=== PATIENT | male | born 1955 | race Caucasian/White ===

== ENCOUNTER 2017-03-13 13:04 | Emergency (ER) | payer OTHER ==
[~2017-03-13] VITALS: Ht 177.8 cm; Wt 61.2 kg
[~2017-03-13 13:04] MED LIST: HYDR-4446 PO; ONDA8TAB PO; VITA-123 PO
[2017-03-13 13:15] VITALS: BP 142/87
[2017-03-13 14:17] LABS: BASOPHILS # (AUTO) 0.1 K/uL (0.00-0.22); BASOPHILS % (AUTO) 1.6 % (0.0-2.0); EOSINOPHILS % (AUTO) 0.5 % (0.0-4.0); HEMATOCRIT 41.3 % (36-52); HEMOGLOBIN 13.8 g/dL (12.0-18.0); LYMPHOCYTES # (AUTO) 0.5 K/uL (2.0-11.5); LYMPHOCYTES % (AUTO) 6.6 % (20.5-51.1); MEAN CORPUSCULAR HEMOGLOBIN 28 pg (27-31); MEAN CORPUSCULAR HGB CONC 33 g/dL (33-37); MEAN CORPUSCULAR VOLUME 85 fL (80-94); MONOCYTES # (AUTO) 0.7 K/uL (0.8-1.0); NEUTROPHILS # (AUTO) 6.9 K/uL (1.8-7.7); NEUTROPHILS % (AUTO) 83.3 % (42.2-75.2); PLATELET COUNT (AUTO) 147 K/uL (140-450); RED BLOOD CELL COUNT(AUTO) 4.88 MIL/uL (4.20-6.10); RED CELL DISTRIBUTION WIDTH 15.7 % (11.6-13.7); WHITE BLOOD COUNT (AUTO) 8.2 K/uL (4.8-10.8)
[2017-03-13 14:35] LABS: ALBUMIN 4.3 g/dL (3.4-5.0); ANION GAP 16.4 (8-16); CARBON DIOXIDE 26.1 mmol/L (21-32); CREATININE 0.7 mg/dL (0.7-1.3); POTASSIUM 3.5 mmol/L (3.5-5.1); TOTAL BILIRUBIN 4.4 mg/dL (0.0-1.0)
--- NOTE | 2017-03-13 14:41 | NUR ---
RECEIVED PT PT PRESENTS TO ER W/C/O ABDOMINAL PAIN X1 WEEK. HX GASTRITIS.
--- NOTE | 2017-03-13 14:46 | NUR ---
PT REPORTS GENREALIZED ABDOMINAL PAIN WITHNAUSEA/VOMITTING (CLR FLUID) AND BLACK STOOLS SINCE LAST NIGHT. DENIES ANY CP OR SOB. SKIN WARM/DRY/PINK. NO OBVIOUS BLEEDING NOTED. REPORTS MILD FEVER LAST NIGHTS, +CHILLS. DENIES DIARRHEA. STATES HE'S HAD THIS BEFORE, SEEN AT HOSPITALBUT SENT HOME WITHOUT ANY "REAL TX". PT DENIES TAKING ANY ANTICOAGULANTS. REPORTS LEFT LOWER LUNG LOBECTOMY. RESP EVEN AND UNLABORED.WAITING FOR ER MD SCHUMACHER.
--- NOTE | 2017-03-13 15:42 | NUR ---
DR HERNANDEZ IN ROOM FOR EXAM
--- NOTE | 2017-03-13 16:00 | NUR ---
Patient discharged with v/s stable. Written and verbal after care instructions given and explained. Patient alert, oriented and verbalized understanding of instructions. Ambulatory with steady gait. All questions addressed prior to discharge. ID band removed. Patient advised to follow up with PMD. Rx of PRILOSEC given. Patient educated on indication of medication including possible reaction and side effects. Opportunity to ask questions provided and answered.
== END 2017-03-13 16:00 | disposition home or self-care (01) ==
LOC: MED 13:04
DX: R10.12 Left upper quadrant pain (principal); K92.1 Melena; F17.200 Nicotine dependence, unspecified, uncomplicated; J45.909 Unspecified asthma, uncomplicated
CPT/HCPCS: 36415; 80053; 83690; 85025; 99284

== ENCOUNTER 2019-07-02 10:59 | Emergency (ER) | payer OTHER ==
[~2019-07-02] VITALS: Ht 175.3 cm; Wt 68.0 kg
[~2019-07-02 10:59] MED LIST changes: +ACET-8386 PO; -HYDR-4446 PO
[2019-07-02 11:05] VITALS: BP_SYST 130; BP_SYST 144; BP_DIAS 62; BP_DIAS 92
--- NOTE | 2019-07-02 11:15 | NUR ---
TO BED # 08, BROUGHT IN BY AMBULANCE FOR GEN WEAKNESS, N/V. PATIENT ETOH , HE DRINK ALL NIGHT.
--- NOTE | 2019-07-02 11:31 | NUR ---
SEEN AND EXAMINED BY RICA , WITH ORDERS AND CARRIED OUT.
--- NOTE | 2019-07-02 11:57 | NUR ---
oil well fishing tool technician at bedside.
--- NOTE | 2019-07-02 12:29 | NUR ---
Patient returned from CT scan. RN re-evaluating patient at bedside.
[2019-07-02 13:01] LABS: BASOPHILS % (AUTO) 0.6 % (0.0-2.0); HEMOGLOBIN 12.3 g/dL (12.0-18.0); LYMPHOCYTES # (AUTO) 0.5 K/uL (2.0-11.5); MEAN CORPUSCULAR HEMOGLOBIN 29 pg (27-31); MEAN CORPUSCULAR HGB CONC 32 g/dL (33-37); MEAN CORPUSCULAR VOLUME 88.2 fL (80-94); MONOCYTES # (AUTO) 0.8 K/uL (0.8-1.0); MONOCYTES % (AUTO) 9.6 % (1.7-9.3); NEUTROPHILS # (AUTO) 7.1 K/uL (1.8-7.7); NEUTROPHILS % (AUTO) 83.8 % (42.2-75.2); PLATELET COUNT (AUTO) 134 K/uL (140-450); RED BLOOD CELL COUNT(AUTO) 4.31 MIL/uL (4.20-6.10); RED CELL DISTRIBUTION WIDTH 16.6 % (11.6-13.7); WHITE BLOOD COUNT (AUTO) 8.5 K/uL (4.8-10.8)
[2019-07-02 13:53] LABS: ALBUMIN 3.8 g/dL (3.4-5.0); ANION GAP 26.4 (8-16); CARBON DIOXIDE 20.5 mmol/L (21-32); CREATININE 0.9 mg/dL (0.7-1.3); POTASSIUM 3.9 mmol/L (3.5-5.1); TOTAL BILIRUBIN 1.5 mg/dL (0.0-1.0)
[2019-07-02] MEDS ORDERED: ONDANSETRON 4 MG/2 ML VIAL IVP ONE (14:00)
[2019-07-02 14:17] LABS: APPEARANCE,URINE CLEAR (CLEAR); BILIRUBIN,URINE NEGATIVE (NEGATIVE); BLOOD, URINE 1+ (NEGATIVE); COLOR,URINE YELLOW (YELLOW); LEUKOCYTE ESTERASE ,URINE NEGATIVE (NEGATIVE); NITRITE, URINE NEGATIVE (NEGATIVE); UGLUCOSE NEGATIVE (NEGATIVE)
[2019-07-02 14:37] LABS: WBC,URINE 0-5 /HPF (0-5)
[2019-07-02] MEDS ORDERED: NACL 0.9% 1,000 ML IV ONE (14:45)
[2019-07-02] MEDS ORDERED: KETOROLAC 30 MG/ML VIAL IM/IVP ONE (16:00)
--- NOTE | 2019-07-02 16:43 | NUR ---
IV removed, catheter intact and site benign. Applied folded 4x4 gauze and tape to stop bleeding.
[2019-07-02 16:44] VITALS: BP 133/65
--- NOTE | 2019-07-02 16:44 | NUR ---
Patient discharged with v/s stable. Written and verbal after care instructions given and explained. Patient verbalized understanding. Ambulatory with steady gait. Patient accompanied by significant other. All questions addressed prior to discharge. Advised to follow up with PMD.
== END 2019-07-02 16:44 | disposition home or self-care (01) ==
LOC: MED 10:59
DX: T14.90XA Injury, unspecified, initial encounter (principal); F10.129 Alcohol abuse with intoxication, unspecified; E86.0 Dehydration; J45.909 Unspecified asthma, uncomplicated; Z79.899 Other long term (current) drug therapy; W20.8XXA Other cause of strike by thrown, projected or falling object, initial encounter; Y93.89 Activity, other specified; Y92.89 Other specified places as the place of occurrence of the external cause; Y99.8 Other external cause status
CPT/HCPCS: 36415; 70450; 71045; 74176; 80053; 81001; 82140; 83690; 85025; 96361; 96374; 96375; 99284; G0482; J1885; J2405; Q0092

== ENCOUNTER 2021-02-02 06:55 | Inpatient (IN) | payer OTHER ==
[~2021-02-02] VITALS: Ht 177.8 cm; Wt 61.7 kg
[2021-02-02] VITALS (7 sets, daily range): BP systolic 128–149; BP diastolic 65–96
[~2021-02-02 06:55] MED LIST changes: -ONDA8TAB PO; +ONDA8TAB87 PO
--- NOTE | 2021-02-02 06:55 | NUR ---
BROUGHT IN BY AMBULANCE WITH C/O GEN WEAKNESS, DIZZINESS, BODY ACHES.
[2021-02-02] MEDS ORDERED: DILTIAZEM 25 MG/5 ML VIAL IVP ONE ×3 (06:59→07:40)
[2021-02-02] MEDS ORDERED: NACL 0.9% 1,000 ML IV ONE (07:00)
--- NOTE | 2021-02-02 07:36 | NUR ---
65 Y/O M MIKE FROM [facility], PT WAS PREVIOUSLY AT [facility], BUT WAS PUT IN ER LOBBY WAITING. PT THEN CALLED 911 TO BE SEEN HERE. ON SCENE PT WAS SHOWN TO HAVE ATRIAL FLUTTER VS SVT AND WAS GIVEN ADENOSINE 6MG, 12MG WITH NO RESPONSE. PT WAS C/O GENERALIZED WEAKNESS, DIZZINESS, AND BODY ACHES. PT IS CURRENTLY A&OX4 UNABLE TO AMBULATE AT THIS TIME WITH STEADY GAIT. PT AT THIS TIME IS PRESENTING WITH A FLUTTER WITH HR OF 144. PATIENT POSITIONED FOR COMFORT; HOB ELEVATED; BEDRAILS UP X2; BED DOWN. ER MD MADE AWARE OF PT STATUS. PMH: L LUNG REMOVAL, HERNIA, ACID REFLUX NKA
[2021-02-02 08:03] LABS: BASOPHILS % (AUTO) 0.2 % (0.0-2.0); EOSINOPHILS % (AUTO) 0.1 % (0.0-4.0); HEMATOCRIT 40.9 % (36-52); HEMOGLOBIN 13.4 g/dL (12.0-18.0); LYMPHOCYTES # (AUTO) 0.6 K/uL (2.0-11.5); LYMPHOCYTES % (AUTO) 13.6 % (20.5-51.1); MEAN CORPUSCULAR HEMOGLOBIN 30 pg (27-31); MEAN CORPUSCULAR HGB CONC 33 g/dL (33-37); MEAN CORPUSCULAR VOLUME 90.5 fL (80-94); MONOCYTES # (AUTO) 0.3 K/uL (0.8-1.0); MONOCYTES % (AUTO) 7.3 % (1.7-9.3); NEUTROPHILS # (AUTO) 3.4 K/uL (1.8-7.7); NEUTROPHILS % (AUTO) 78.8 % (42.2-75.2); PLATELET COUNT (AUTO) 173 K/uL (140-450); RED BLOOD CELL COUNT(AUTO) 4.52 MIL/uL (4.20-6.10); RED CELL DISTRIBUTION WIDTH 13.7 % (11.6-13.7); WHITE BLOOD COUNT (AUTO) 4.3 K/uL (4.8-10.8)
[2021-02-02 08:18] LABS: ALBUMIN 3.4 g/dL (3.4-5.0); ANION GAP 14.7 (8-16); ASPARTATE AMINOTRANSFERASE 37 U/L (15-37); CARBON DIOXIDE 23.8 mmol/L (21-32); CHLORIDE 100 mmol/L (98-107); CREATININE 0.6 mg/dL (0.6-1.3); GFR ARICAN-AMERICAN 174 mL/min (>90); GLUCOSE 90 mg/dL (74-106); LIPASE 115 U/L (73-393); MAGNESIUM 1.3 mg/dL (1.8-2.4); POTASSIUM 3.5 mmol/L (3.5-5.1); SODIUM SERUM 135 mmol/L (136-145); TOTAL BILIRUBIN 3.7 mg/dL (0.0-1.0); UREA NITROGEN, BLOOD 5 mg/dL (7-18)
[2021-02-02] MEDS ORDERED: DILTIAZEM 125 MG in DEXTROSE 5% 100 ML IV ONE (08:40)
[2021-02-02] MEDS ORDERED: DILTIAZEM 125 MG in DEXTROSE 5% 100 ML IV SCH (08:54)
[2021-02-02] MEDS ORDERED: HYDR-5191 PO (09:58)
[2021-02-02] MEDS ORDERED: fentaNYL citrate 0.05 MG/ML VIAL IVP ONE (10:00)
[2021-02-02] MEDS ORDERED: MAG SULF 2000 MG/WATER PREMIX 50 ML IV ONE (10:00)
[2021-02-02] MEDS ORDERED: LORazepam 2 MG/ML VIAL IM/IVP PRN (10:15)
[2021-02-02] MEDS ORDERED: ZOLPIDEM 5 MG TAB PO PRN (10:15)
[2021-02-02] MEDS ORDERED: DOCUSATE SODIUM 100 MG GELCAP PO PRN (10:15)
[2021-02-02] MEDS ORDERED: HYDROcodone/APAP 5/325 MG 1 TAB TAB PO PRN (10:15)
[2021-02-02] MEDS ORDERED: ACETAMINOPHEN 325 MG TAB PO PRN (10:15)
[2021-02-02] MEDS ORDERED: MAG SULF 2000 MG/WATER PREMIX 100 ML IV SCH (10:30)
--- NOTE | 2021-02-02 10:44 | NUR ---
DANE SWAB AND URINE COLLECTED. SENT TO LAB
--- NOTE | 2021-02-02 10:47 | NUR ---
LABS LEFT WITH NORBERT PHLEB.
[2021-02-02] MEDS: NACL 0.9% 1,000 ML IV SCH ×2 (10:52→20:27)
[2021-02-02 10:57] LABS: APPEARANCE,URINE CLEAR (CLEAR); BILIRUBIN,URINE NEGATIVE (NEGATIVE); BLOOD, URINE NEGATIVE (NEGATIVE); COLOR,URINE YELLOW (YELLOW); LEUKOCYTE ESTERASE ,URINE 1+ (NEGATIVE); NITRITE, URINE NEGATIVE (NEGATIVE); UGLUCOSE NEGATIVE (NEGATIVE)
[2021-02-02 11:08] LABS: RBC,URINE 0-5 /HPF (0-5); WBC,URINE 0-5 /HPF (0-5)
[2021-02-02 11:21] LABS: PROTHROMBIN TIME 10.5 secs (10.8-13.4)
[2021-02-02 11:22] LABS: BARBITURATE, URINE NEGATIVE ng/ml (NEG <=200); BENZODIAZEPINE, URINE NEGATIVE ng/mL (NEG <=200); CANNABINOID, URINE NEGATIVE ng/mL (NEG <=50); COCAINE, URINE NEGATIVE ng/mL (NEG <=300); OPIATE, URINE NEGATIVE ng/mL (NEG <=2000); PHENCYCLIDINE SCREEN,URINE NEGATIVE ng/mL (NEG <=25)
[2021-02-02 11:24] LABS: CHOL/HDL RATIO 1.7 (1-4.5); FREE T4 (FREE THYROXINE) 0.69 ng/dL (0.76-1.46); MAGNESIUM 1.3 mg/dL (1.8-2.4); PHOSPHORUS 2.4 mg/dL (2.5-4.9); THYROID STIMULATING HORMONE 0.44 uIU/mL (0.34-3.74)
--- NOTE | 2021-02-02 11:53 | NUR ---
ZEYNEP [phone]
--- NOTE | 2021-02-02 12:13 | NUR ---
[facility]IV[facility] ON PT STATUS
[2021-02-02] MEDS ORDERED: LOVENOX 1MG/KG Q12H SUBQ SCH (12:55)
[2021-02-02] MEDS ORDERED: DIGOXIN 0.25 MG/ML AMP IV SCH (13:15)
[2021-02-02] MEDS ORDERED: AMIODARONE 150 MG in DEXTROSE 5% 100 ML IV SCH (13:15)
[2021-02-02] MEDS ORDERED: ENOXAPARIN 60 MG/0.6 ML SYR SUBQ SCH (13:30)
[2021-02-02] MEDS ORDERED: POTASSIUM CHLORIDE 10 MEQ TABER PO SCH (13:30)
[2021-02-02] MEDS: AMIODARONE 450 MG in DEXTROSE 5% 250 ML IV SCH ×2 (14:36→22:40)
--- NOTE | 2021-02-02 17:45 | NUR ---
Patient will be admitted to care of RIZWANA ORELLANA. Admited to ICU. Will go to room 4. Belongings list completed. Report to ORALIA MEDRANO.
--- NOTE | 2021-02-02 17:49 | NUR ---
ZEYNEP WAS CALLED, MESSAGE WAS LEFT. PT WAS TRANSFERRED TO ICU BED 4, FOR ANY UPDATES PLEASE CALL ICU.
--- NOTE | 2021-02-02 18:00 | NUR ---
PT ARRIVED FROM ER IN [facility], WALKS SLOWLY WITH STEADY GAIT TO BED, REPORT RECEIVED FROM MANAGER CLEANINGMARCELA VICKERS, PT AAOX4,SPEAKS CLEARLY, MOVES ALL EXT FREELY, RESP EVEN UNLABORED ON RA, SKIN WARM DRY COLOR WNL, CAP REFILL <3SEC, PT ON CARDIAC MONIOR, NORMAL SINUS RHYTHM AT THIS TIME AT 76BPM, ABD SOFT, NON DISTENDED, PT REPORTS PAIN IN LEFT SIDE FROM PREVIOUS FALL AND LEFT ARM WHERE HE HAD AN IV, WILL GIVE MEDICATION PER ORDER, NEW IV STARTED TO RIGHT UPPER ARM 20G, PT MITCHEL WELL, PLAN OF CARE REVIEWED, ALL SAFETY MEASURES IN PLACE.
[2021-02-02] MEDS: MORPHINE SULFATE 2 MG/ML SYR IVP PRN (18:06)
--- NOTE | 2021-02-02 19:30 | NUR ---
ASSUMED CARE OF PT.INITIAL ASSESSMENT COMPLETED.PT AWAKE ALERT AND ORIENTED X4.ON ROOM AIR.SR ON MONITOR.PT W/JANETTE PERIPHERAL IV G20 INTACT INFUSING ORDERED IVF AND AMIODARONE DRIP 450MG IN 250 ML D5W AT 1MG/MIN.ON CARDIAC DIET.ABLE TO VOID FREELY.SKIN INTACT.DENIES PAIN AT THIS TIME.CALL LIGHT WITHIN REACH.BED IN LOW POSITION
--- NOTE | 2021-02-02 20:00 | NUR ---
PHONE CALL FROM PTS SON; WANTS TO TALK TO PT, TELEPHONE GIVEN TO THE PT.
--- NOTE | 2021-02-02 20:30 | NUR ---
PT EATING DINNER.DENIES N/V.
[2021-02-02] MEDS: ONDANSETRON 4 MG/2 ML VIAL IVP PRN (23:27)
--- NOTE | 2021-02-02 23:27 | NUR ---
PT VOMITING SMALL AMT OF WATERY VOMIT; ZOFRAN GIVEN ORDERED
[2021-02-03] VITALS (16 sets, daily range): BP systolic 121–150; BP diastolic 64–97
--- NOTE | 2021-02-03 01:00 | NUR ---
PT ASLEEP; NO S/SX OF PAIN NOTED.WILL CONTINUE TO CLOSELY MONITOR PT
[2021-02-03] MEDS: ENOXAPARIN 60 MG/0.6 ML SYR SUBQ SCH ×2 (02:39→14:30)
--- NOTE | 2021-02-03 03:00 | NUR ---
PTS CONDITION REMAINS UNCHANGED.STILL ON AMIODARONE DRIP AT 0.5MG/MIN.PERIPHERAL IV INTACT.DENIES PAIN
--- NOTE | 2021-02-03 05:46 | NUR ---
PT VOIDED FREELY USING URINAL, LIGHT VAZQUEZ COLORED URINE NOTED.ADEQUATE AMT. OFFERED MORNING CARE.PT REFUSED
[2021-02-03 06:12] LABS: EOSINOPHILS # (AUTO) 0.1 K/uL (0-0.4); HEMATOCRIT 37.8 % (36-52); HEMOGLOBIN 12.7 g/dL (12.0-18.0); LYMPHOCYTES % (AUTO) 14.8 % (20.5-51.1); MEAN CORPUSCULAR HEMOGLOBIN 30 pg (27-31); MEAN CORPUSCULAR HGB CONC 34 g/dL (33-37); MEAN CORPUSCULAR VOLUME 90.3 fL (80-94); MONOCYTES # (AUTO) 0.4 K/uL (0.8-1.0); MONOCYTES % (AUTO) 5.9 % (1.7-9.3); NEUTROPHILS # (AUTO) 5.2 K/uL (1.8-7.7); NEUTROPHILS % (AUTO) 78.3 % (42.2-75.2); PLATELET COUNT (AUTO) 126 K/uL (140-450); RED BLOOD CELL COUNT(AUTO) 4.19 MIL/uL (4.20-6.10); RED CELL DISTRIBUTION WIDTH 13.4 % (11.6-13.7); WHITE BLOOD COUNT (AUTO) 6.7 K/uL (4.8-10.8)
[2021-02-03] MEDS: NACL 0.9% 1,000 ML IV SCH ×2 (06:15→16:15)
[2021-02-03 06:25] LABS: CREATININE 0.5 mg/dL (0.6-1.3)
[2021-02-03 06:33] LABS: MAGNESIUM 1.7 mg/dL (1.8-2.4); PHOSPHORUS 2.1 mg/dL (2.5-4.9)
--- NOTE | 2021-02-03 07:28 | NUR ---
BEDSIDE REPORT RECEIVED FROM ENGINE BUILDUP MECHANIC NURSE ADORE, PT AWAKE ALERT AND ORIENTED X4, MOVES ALL EXT. SR NOTED ON MONITOR HR 75-85 RESP EVEN UNLABORED ON ROOM AIR. SKIN WARM DRY COLOR WNL, CAP REFILL <3, PIV 20G TO RIGHT UPPER ARM, AMIODARONE DRIP AT 0.5MG/MIN, NS AT 100ML/HR INFUSING WELL, SITE WNL, LEFT INNER ELBOW AREA WITH SLIGHT SWELLING FROM PREVIOUS IV, WARM PACK IN PLACE, PT STATES SWELLING IMPROVING, ABD FLAT SOFT, NON DISTENDED, PT REPORTS PAIN 8/10 TO LEFT SIDE RIBS FROM PREVIOUS FALL, REQUESTS NORCO 10/325 HE TAKES AT HOME, PRN ORDER FOR NORCO IS 5/325, PT REFUSES 5/325 NORCO, WILL NOTIFY MD, WILL MEDICATE WITH MORPHINE FOR NOW, ALL SAFETY MEASURES IN PLACE, CALL LIGHT WITHIN REACH.INSTRUCTED PT TO USE CALL LIGHT FOR ASSISTANCE, PLAN OF CARE REVIEWED AND DISCUSSED, NO OTHER IMMEDIATE NEEDS VOICED AT THIS TIME.
[2021-02-03] MEDS: MORPHINE SULFATE 2 MG/ML SYR IVP PRN (07:32)
--- NOTE | 2021-02-03 07:32 | NUR ---
PRN MORPHINE GIVEN PER ORDER.
--- NOTE | 2021-02-03 08:45 | NUR ---
PT SITTING UP EATING BREAKFAST AT THIS TIME
--- NOTE | 2021-02-03 11:45 | NUR ---
AMIODARONE DRIP DC'D PER ORDER BY DR FORMAN. GIVE PO AMIO PER ORDER
[2021-02-03] MEDS: HYDROcodone/APAP 10/325 MG 1 TAB TAB PO PRN ×2 (11:57→20:23)
[2021-02-03] MEDS: AMIODARONE 200 MG TAB PO SCH ×2 (11:58→20:22)
--- NOTE | 2021-02-03 12:50 | NUR ---
CARDROOM HAND AT BEDSIDE
--- NOTE | 2021-02-03 13:48 | NUR ---
SPONGE BATH GIVEN AT BESIDE, PT ABLE TO SIT AT SIDE OF BED, BED LINEN CHANGED.
--- NOTE | 2021-02-03 15:26 | NUR ---
DR FORMAN AT BEDSIDE
--- NOTE | 2021-02-03 16:20 | NUR ---
NORCO GIVEN FOR RIB PAIN
--- NOTE | 2021-02-03 17:50 | NUR ---
PT SITTING UP IN BED FOR DINNER
--- NOTE | 2021-02-03 18:02 | NUR ---
PT UP TO BEDSIDE COMMODE, LOOSE STOOL, PT ABLE TO GET BACK TO BED ON HIS OWN.
[2021-02-03] MEDS ORDERED: MAGNESIUM OXIDE 400 MG TAB PO PRN (19:05)
[2021-02-03] MEDS ORDERED: SODIUM PHOS / POTASSIUM PHOS 1 PKT PDR PO PRN (19:05)
--- NOTE | 2021-02-03 19:20 | NUR ---
REPORT GIVEN TO CASINO HOST NURSE BRONWYN
--- NOTE | 2021-02-03 19:21 | NUR ---
RECEIVED REPORT FROM AM SHIFT NURSE. PT IN BED RESTING. PT AAOX4 AND ABLE TO MAKE NEEDS KNOWN. RESPIRATIONS EVEN AND UNLABORED TO ROOM AIR. ABDOMEN IS SOFT AND NON-TENDER, ACTIVE BOWEL SOUNDS NOTED. SKIN IS WARM, DRY, AND INTACT PT WITH IV ACCESS ON RIGHT UPPER ARM G20 PATENT AND INTACT, IVF INFUSING WELL. PT HOOKED TO TELE MONITOR, VS STABLE AT THIS TIME. PT TRANSPORTED TO [facility].
--- NOTE | 2021-02-03 20:23 | NUR ---
VS STABLE. SCHEDULED MEDS GIVEN ORDERED. PT COMPLAINING OF LEFT RIB PAIN 02/06. PRN NORCO GIVEN ORDERED. NO OTHER REQUESTS MADE. WILL CONTINUE TO MONITOR.
--- NOTE | 2021-02-03 22:18 | NUR ---
ROUNDS MADE. PT WATCHING TV. DENIES ANY PAIN OR DISCOMFORT AT THIS TIME. NO REQUESTS MADE. CALL LIGHT WITHIN REACH. WILL CONTINUE TO MONITOR.
[2021-02-04] VITALS: BP 129/74
--- NOTE | 2021-02-04 00:23 | NUR ---
VS STABLE. PT RESTING IN BED. NO S/SX OF PAIN OR DISCOMFORT NOTED. WILL CONTINUE TO MONITOR.
[2021-02-04] MEDS: NACL 0.9% 1,000 ML IV SCH ×3 (02:15→21:52)
--- NOTE | 2021-02-04 02:16 | NUR ---
PT SLEEPING. VISIBLE CHEST RISE AND FALL NOTED. NO S/SX OF PAIN OR DISCOMFORT NOTED. SAFETY MEASURES IN PLACE. CALL LIGHT WITHIN REACH. WILL CONTINUE TO MONITOR.
[2021-02-04] MEDS: ENOXAPARIN 60 MG/0.6 ML SYR SUBQ SCH ×2 (03:17→14:08)
[2021-02-04 04:00] VITALS: BP 132/72
--- NOTE | 2021-02-04 04:22 | NUR ---
VITAL SIGNS STABLE. PT DENIES PAIN OR DISCOMFORT AT THIS TIME. NO REQUESTS MADE. IVF INFUSING WELL. WILL CONTINUE TO MONITOR.
[2021-02-04 06:13] LABS: BASOPHILS % (AUTO) 0.1 % (0.0-2.0); EOSINOPHILS # (AUTO) 0.1 K/uL (0-0.4); EOSINOPHILS % (AUTO) 1.4 % (0.0-4.0); HEMATOCRIT 38.9 % (36-52); HEMOGLOBIN 12.7 g/dL (12.0-18.0); LYMPHOCYTES # (AUTO) 0.7 K/uL (2.0-11.5); LYMPHOCYTES % (AUTO) 13.5 % (20.5-51.1); MEAN CORPUSCULAR HEMOGLOBIN 30 pg (27-31); MEAN CORPUSCULAR HGB CONC 33 g/dL (33-37); MEAN CORPUSCULAR VOLUME 91.7 fL (80-94); MONOCYTES # (AUTO) 0.3 K/uL (0.8-1.0); MONOCYTES % (AUTO) 5.5 % (1.7-9.3); NEUTROPHILS # (AUTO) 4.3 K/uL (1.8-7.7); NEUTROPHILS % (AUTO) 79.5 % (42.2-75.2); PLATELET COUNT (AUTO) 115 K/uL (140-450); RED BLOOD CELL COUNT(AUTO) 4.24 MIL/uL (4.20-6.10); RED CELL DISTRIBUTION WIDTH 13.8 % (11.6-13.7); WHITE BLOOD COUNT (AUTO) 5.4 K/uL (4.8-10.8)
[2021-02-04 06:23] LABS: ANION GAP 15.2 (8-16); CARBON DIOXIDE 24.4 mmol/L (21-32); CREATININE 0.6 mg/dL (0.6-1.3); POTASSIUM 3.6 mmol/L (3.5-5.1)
--- NOTE | 2021-02-04 06:56 | NUR ---
PT COMPLAINING OF LEFT RIB PAIN 02/06. PRN NORCO GIVEN ORDERED.
[2021-02-04] MEDS: HYDROcodone/APAP 10/325 MG 1 TAB TAB PO PRN ×3 (06:57→21:52)
--- NOTE | 2021-02-04 07:28 | NUR ---
report given to am shift nurse for continuity of care
--- NOTE | 2021-02-04 07:30 | NUR ---
RECEIVED REPORT FROM METAL INSPECTOR NURSE. AOX4, MOVES ALL EXT, ABLE TO AMBULATE. SR NOTED ON MONITOR. ON ROOM AIR. SKIN INTACT, IV, CLEAN DRY, AND INTACT, 20G TO RIGHT UPPER ARM, AUTOMATIC BLOCKER IN PLACE. SAFETY MEASURES IN PLACE, CALL LIGHT WITHIN REACH. WILL CONTINUE TO MONITOR.
[2021-02-04 08:00] VITALS: BP 105/78
--- NOTE | 2021-02-04 08:33 | NUR ---
PATIENT HAS BEEN SCREENED AND CATEGORIZED LOW NUTRITION RISK. PATIENT WILL BE SEEN WITHIN 7 DAYS OF ADMISSION. 02/09/[address]
[2021-02-04] MEDS: AMIODARONE 200 MG TAB PO SCH ×2 (08:52→21:00)
--- NOTE | 2021-02-04 10:15 | NUR ---
CHECKED ON PATIENT. NO SIGNS OF PAIN OR DISTRESS.
[2021-02-04 12:00] VITALS: BP 115/73
--- NOTE | 2021-02-04 12:00 | NUR ---
PATIENT COMPLAINS OF PAIN. 12/07. INFORMED PATIENT THAT MEDICATION IS NOT DUE YET AND CAN GIVE IN AN HOUR. PATIENT VERBALIZED UNDERSTANDING.
--- NOTE | 2021-02-04 13:00 | NUR ---
ADMINISTERED PRN NORCO FOR 6/10 PAIN. WILL REASSESS. WILL CONTINUE TO MONITOR.
--- NOTE | 2021-02-04 14:05 | NUR ---
REASSESSED PATIENTS PAIN. PATIENT DENIES PAIN OR DISTRESS. WILL CONTINUE TO MONITOR.
[2021-02-04 16:00] VITALS: BP 125/87
--- NOTE | 2021-02-04 16:00 | NUR ---
CHECKED ON PATIENT. NO SIGNS OF PAIN OR DISTRESS. WILL CONTINUE TO MONITOR.
--- NOTE | 2021-02-04 18:05 | NUR ---
CHECKED ON PATIENT. NO SIGN OF PAIN OR DISTRESS. WILL CONTINUE TO MONITOR.
--- NOTE | 2021-02-04 19:46 | NUR ---
ENDORSED TO ANGLE MEDRANO FOR CONTINUITY OF CARE.
[2021-02-04 20:00] VITALS: BP 128/69
--- NOTE | 2021-02-04 20:00 | NUR ---
RECEIVED PATIENT IN BED, COMFORTABLE WATCHING TELEVISION IN NO ACUTE DISTRESS. PATIENT IS ALERT AND ORIENTED X 4, ABLE TO MAKE NEEDS KNOWN. LUNGS CTA BILATERALLY. NO C/O SOB, NO S/S OR RESPIRATORY DISTRESS. RESIDENT WAS ON TELE, NOW MED-SURG. HR IS WNL, NO C/O CHEST PAIN OR DISCOMFORT. ABDOMEN IS SOFT W/ BS X 4 QUADS, LBM 02/04/21. IV ON ON JANETTE INFUSING @ 100CC/HR. NO S/S OF INFECTION OR INFILTRATION TO THE PIV SITE. PATIENT HAS NO C/O OR PAIN OR DISCOMFORT AT THIS TIME.
--- NOTE | 2021-02-04 21:30 | NUR ---
PATIENT C/O PAIN 01/06, CHRONIC ON THE LEFT SIDE OF THE BACK. 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 PATIENT'S GIVEN NORCO 10MG /325 MG PER ORDER.
--- NOTE | 2021-02-04 22:15 | NUR ---
REASSESSED PAIN. PATIENT DENIES ANY PAIN OR DISCOMFORT TO THE LEFT SIDE OF THE BACK. MEDICATION IS EFFECTIVE. PATIENT IS STABLE AND COMFORTABLE AT THIS TIME.
[2021-02-04] MEDS ORDERED: METOCLOPRAMIDE 10 MG/2 ML INJ VIAL IVP SCH (22:45)
[2021-02-05] MEDS: ENOXAPARIN 60 MG/0.6 ML SYR SUBQ SCH (02:36)
[2021-02-05 05:23] VITALS: BP 130/74
[2021-02-05 06:16] LABS: ANION GAP 10.9 (8-16); CARBON DIOXIDE 27.4 mmol/L (21-32); CREATININE 0.6 mg/dL (0.6-1.3); POTASSIUM 3.3 mmol/L (3.5-5.1)
[2021-02-05 06:28] LABS: BASOPHILS % (AUTO) 0.2 % (0.0-2.0); EOSINOPHILS # (AUTO) 0.2 K/uL (0-0.4); EOSINOPHILS % (AUTO) 4.5 % (0.0-4.0); HEMOGLOBIN 13.3 g/dL (12.0-18.0); LYMPHOCYTES # (AUTO) 1.1 K/uL (2.0-11.5); LYMPHOCYTES % (AUTO) 29.4 % (20.5-51.1); MEAN CORPUSCULAR HEMOGLOBIN 30 pg (27-31); MEAN CORPUSCULAR HGB CONC 33 g/dL (33-37); MEAN CORPUSCULAR VOLUME 90.6 fL (80-94); MONOCYTES # (AUTO) 0.4 K/uL (0.8-1.0); MONOCYTES % (AUTO) 9.2 % (1.7-9.3); NEUTROPHILS # (AUTO) 2.2 K/uL (1.8-7.7); NEUTROPHILS % (AUTO) 56.7 % (42.2-75.2); PLATELET COUNT (AUTO) 111 K/uL (140-450); RED BLOOD CELL COUNT(AUTO) 4.42 MIL/uL (4.20-6.10); RED CELL DISTRIBUTION WIDTH 13.2 % (11.6-13.7); WHITE BLOOD COUNT (AUTO) 3.9 K/uL (4.8-10.8)
--- NOTE | 2021-02-05 07:25 | NUR ---
RECEIVE REPORT FROM PROGRAM MANUFACTURING LEADER NURSE FOR CONTINUITY OF CARE. PATIENT AWAKE. ALL SAFETY MEASURES IN PLACE. WILL CONTINUE TO MONITOR.
[2021-02-05] MEDS: NACL 0.9% 1,000 ML IV SCH ×2 (07:47→18:15)
[2021-02-05 08:00] VITALS: BP 125/74
[2021-02-05] MEDS: AMIODARONE 200 MG TAB PO SCH ×2 (08:40→21:28)
--- NOTE | 2021-02-05 08:40 | NUR ---
PATIENT AWAKE AND ALERT. ROUTINE MEDICATION GIVEN. ALL SAFETY MEASURES IN PLACE. WILL CONTINUE TO MONITOR.
[2021-02-05] MEDS: HYDROcodone/APAP 10/325 MG 1 TAB TAB PO PRN ×3 (08:41→21:29)
[2021-02-05 09:22] LABS: MAGNESIUM 1.5 mg/dL (1.8-2.4); PHOSPHORUS 3.2 mg/dL (2.5-4.9)
[2021-02-05] MEDS ORDERED: MAGNESIUM HYDROXIDE 2400 MG/30 ML UDC PO SCH (09:30)
[2021-02-05] MEDS ORDERED: LACTULOSE 20 GM/30 ML UDC PO SCH (09:30)
--- NOTE | 2021-02-05 10:58 | NUR ---
PATIENT AWAKE AND ALERT. BREATHING EVEN AND UNLABORED. ALL SAFETY MEASURES IN PLACE. WILL CONTINUE TO MONITOR.
[2021-02-05] MEDS ORDERED: DOCU-299 PO (11:26)
[2021-02-05] MEDS ORDERED: AMIO200T10 PO ×2 (11:26→15:07)
--- NOTE | 2021-02-05 12:15 | NUR ---
PATIENT AWAKE AND ALERT. BREATHING EVEN AND UNLABORED. PATIENT EATING LUNCH. ALL SAFETY MEASURES IN PLACE. WILL CONTINUE TO MONITOR.
--- NOTE | 2021-02-05 14:54 | NUR ---
PATIENT SLEEPING. BREATHING EVEN AND UNLABORED. ALL SAFETY MEASURES IN PLACE WILL CONTINUE TO MONITOR.
[2021-02-05] MEDS ORDERED: AMIO200T66 PO (15:07)
[2021-02-05] MEDS: ONDANSETRON 4 MG/2 ML VIAL IVP PRN (15:20)
--- NOTE | 2021-02-05 16:20 | NUR ---
PATIENT AWAKE AND ALERT. BREATHING EVEN AND UNLABORED. ALL SAFETY MEASURES IN PLACE. WILL CONTINUE TO MONITOR.
--- NOTE | 2021-02-05 17:18 | NUR ---
PATIENT REFUSE TO BE DISCHARGED. DR. RICKETTS NOTIFIED AND STATE PATIENT STABLE TO BE DISCHARGED.
--- NOTE | 2021-02-05 19:18 | NUR ---
ENDORSED REPORT TO LEATHER GRADER NURSE FOR CONTINUITY OF CARE. PATIENT STABLE. ALL SAFETY MEASURES IN PLACE.
--- NOTE | 2021-02-05 19:30 | NUR ---
PT AAOX4 FOLLOWING COMMANDS, AMBULATING @ BEDSIDE STEADY GAIT. +2 EQUAL BILATERAL RADIAL/PEDAL PULSES, NO EDEMA NOTED. PT DENIES CP/ SOB @ THIS TIME. LUNGS CLEAR TO AUSCULTATION, DIMINISHED @ BASES. ABD SOFT NON DISTENDED. PT C/O N/V THIS EVENING. PT STATED HE HAD X4 EPISODES OF GREEN EMESIS. PT VOIDING IN URINAL. VAZQUEZ URINE NOTED. SKIN INTACT. BED LOCKED IN LOWEST POSITION. SAFETY PRECAUTIONS IN PLACE. CALL LIGHT WITHIN REACH. WILL CONTINUE TO OBSERVE.
[2021-02-05 20:00] VITALS: BP 103/70
--- NOTE | 2021-02-05 21:03 | NUR ---
PAGED DR RICKETTS, ABOUT PT C/O OF N/V STATED TO HOLD DISCHARGE FOR TONIGHT WILL CONTINUE TO OBSERVE.
[2021-02-05] MEDS: APIXABAN 2.5 MG TAB PO SCH (21:28)
--- NOTE | 2021-02-05 21:30 | NUR ---
PT C/O ABD PAIN, NORCO PRN GIVEN WILL CONTINUE TO OBSERVE.
--- NOTE | 2021-02-05 22:30 | NUR ---
PT HAS EYES CLOSED; AROUSABLE, DENIES PAIN WILL CONTINUE TO OBSERVE.
--- NOTE | 2021-02-06 00:15 | NUR ---
PT AWAKE WATCHING TELEVISION. BLANKET GIVEN FOR COMFORT. NO S/S OF DISTRESS NOTED. WILL CONTINUE TO OBSERVE.
[2021-02-06 04:00] VITALS: BP 115/65
[2021-02-06] MEDS: NACL 0.9% 1,000 ML IV SCH (04:02)
--- NOTE | 2021-02-06 04:06 | NUR ---
PT HAS EYES CLOSED; AROUSABLE, NO S/S OF ACUTE DISTRESS NOTED. WILL CONTINUE TO OBSERVE
[2021-02-06 06:13] LABS: BASOPHILS % (AUTO) 0.1 % (0.0-2.0); EOSINOPHILS # (AUTO) 0.2 K/uL (0-0.4); EOSINOPHILS % (AUTO) 4.4 % (0.0-4.0); HEMATOCRIT 38.5 % (36-52); HEMOGLOBIN 12.9 g/dL (12.0-18.0); LYMPHOCYTES % (AUTO) 25.6 % (20.5-51.1); MEAN CORPUSCULAR HEMOGLOBIN 30 pg (27-31); MEAN CORPUSCULAR HGB CONC 33 g/dL (33-37); MEAN CORPUSCULAR VOLUME 90.1 fL (80-94); MONOCYTES # (AUTO) 0.4 K/uL (0.8-1.0); MONOCYTES % (AUTO) 10.1 % (1.7-9.3); NEUTROPHILS # (AUTO) 2.4 K/uL (1.8-7.7); NEUTROPHILS % (AUTO) 59.8 % (42.2-75.2); PLATELET COUNT (AUTO) 112 K/uL (140-450); RED BLOOD CELL COUNT(AUTO) 4.27 MIL/uL (4.20-6.10); RED CELL DISTRIBUTION WIDTH 13.4 % (11.6-13.7); WHITE BLOOD COUNT (AUTO) 4.1 K/uL (4.8-10.8)
[2021-02-06 06:51] LABS: ANION GAP 10.7 (8-16); CREATININE 0.6 mg/dL (0.6-1.3); POTASSIUM 3.7 mmol/L (3.5-5.1)
[2021-02-06] MEDS: HYDROcodone/APAP 10/325 MG 1 TAB TAB PO PRN ×2 (06:56→12:43)
--- NOTE | 2021-02-06 07:35 | NUR ---
REPORT GIVEN TO DAY SHIFT FOR CONTINUITY OF CARE.
--- NOTE | 2021-02-06 08:00 | NUR ---
NURSE REPORT Report obtained from night nurse Herminio and this nurse assume care of patient. Received patient asleep at beginning of shift. No sxs of pain or discomfort. VSS. Afeb. IV NS at 100 ml/hr. into R FA. No redness or swelling. No c/o nausea or vomiting. Brooklynn Gar RN
[2021-02-06] MEDS ORDERED: ONDA4TAB PO (08:58)
[2021-02-06] MEDS: AMIODARONE 200 MG TAB PO SCH (09:00)
[2021-02-06] MEDS: APIXABAN 2.5 MG TAB PO SCH (09:00)
[2021-02-06 12:00] VITALS: BP 138/70
[2021-02-06 12:47] VITALS: BP 138/70
--- NOTE | 2021-02-06 13:00 | NUR ---
NURSE CARE Patient was told that he would be discharged, but took awhile for daughter to come to pick him up. Patient able to eat lunch.
--- NOTE | 2021-02-06 14:05 | NUR ---
DISCHARGE NOTE D/C instructions given to patient with verbal understandings. Patient signed form. IV catheter removed by nursing supervior and gauze and tape applied by this nurse. D/C with this nurse via sadie and daughter lisa uip patient.
== END 2021-02-06 14:05 | disposition home or self-care (01) | DRG 308 ==
LOC: MED 06:55 → MIC 09:39 → UNDOADMIN 13:00 → MMU 02-03 19:30 → MIC 02-03 19:30
PROVIDERS: ADMIT Family Medicine; ATTEND Family Medicine
DX: I48.92 Unspecified atrial flutter (principal); G93.41 Metabolic encephalopathy; N39.0 Urinary tract infection, site not specified; F10.10 Alcohol abuse, uncomplicated; I42.6 Alcoholic cardiomyopathy; E83.39 Other disorders of phosphorus metabolism; E83.51 Hypocalcemia; I48.91 Unspecified atrial fibrillation; Z20.822 Contact with and (suspected) exposure to COVID-19; E87.6 Hypokalemia; E83.42 Hypomagnesemia; K59.00 Constipation, unspecified; J92.9 Pleural plaque without asbestos; J98.4 Other disorders of lung; K21.9 Gastro-esophageal reflux disease without esophagitis; Z86.73 Personal history of transient ischemic attack (TIA), and cerebral infarction without residual deficits; I49.9 Cardiac arrhythmia, unspecified; F60.89 Other specific personality disorders; Z87.891 Personal history of nicotine dependence
CPT/HCPCS: 36415; 71045; 74018; 80048; 80053; 80305; 81001; 82150; 83036; 83690; 83735; 83880; 84100; 84439; 84443; 84484; 85025; 85610; 85730; 87081; 87086; 96361; 96365; 96366; 96368; 96375; 96376; 99291; G0482; J0282; J1160; J1650; J2270; J2405; J3010; J3475; J3490; J7030; J7060

== ENCOUNTER 2022-08-07 12:11 | Emergency (ER) | payer OTHER ==
[~2022-08-07] VITALS: Ht 167.6 cm; Wt 77.1 kg
[~2022-08-07 12:11] MED LIST changes: -ACET-8386 PO; +ACET-8905 PO; +AMIO200T10 PO; +AMIO200T66 PO; +DOCU-299 PO; +HYDR-5191 PO; +ONDA4TAB PO
[2022-08-07 12:14] VITALS: BP 112/76
--- NOTE | 2022-08-07 12:21 | NUR ---
pt placed in wheelchair, seatbelt on, CHD
--- NOTE | 2022-08-07 12:45 | NUR ---
BIBA for intoxication AOX3-4 GCS14 and able to make simple needs known. Placed in wheelchair in front of nursing station. Denies drug use. Food and water given. Denies all medical history and allergies.
--- NOTE | 2022-08-07 13:16 | NUR ---
PT AWAKE AND ALERT, REQUESTING SANDWICH, PT EATING AT THIS TIME
[2022-08-07] MEDS ORDERED: PROM118S5 PO (15:32)
--- NOTE | 2022-08-07 15:42 | NUR ---
Patient discharged with v/s stable. Written and verbal after care instructions given and explained. Patient alert, oriented and verbalized understanding of instructions. Ambulatory with steady gait. All questions addressed prior to discharge. ID band removed. Patient advised to follow up with PMD. Rx of PROMETHAZINE/DEXTROMETHORPHAN given. Opportunity to ask questions provided and answered.
--- NOTE | 2022-08-07 15:50 | NUR ---
The patient's care was reviewed and supervised by Marielena Torre, RN, RN.
== END 2022-08-07 15:41 | disposition home or self-care (01) ==
LOC: MED 12:11
DX: F10.129 Alcohol abuse with intoxication, unspecified (principal); R05.9 Cough, unspecified; J45.909 Unspecified asthma, uncomplicated; Z79.899 Other long term (current) drug therapy; Z86.73 Personal history of transient ischemic attack (TIA), and cerebral infarction without residual deficits
CPT/HCPCS: 71045; 99283